=== PATIENT | male | born 1950 ===

== ENCOUNTER 2017-06-03 10:12 | Outpatient (CLI) | payer OTHER ==
[~2017-06-03] VITALS: Ht 152.4 cm; Wt 68.0 kg
== END 2017-06-03 10:30 | disposition home or self-care (01) ==
LOC: OFIC 805 10:12
DX: H90.3 Sensorineural hearing loss, bilateral (principal); J32.8 Other chronic sinusitis; R42 Dizziness and giddiness; R51 Headache; H93.13 Tinnitus, bilateral

== ENCOUNTER 2018-06-16 09:29 | Outpatient (CLI) | payer OTHER | END 2018-06-16 09:32 | disposition home or self-care (01) | LOC: RAD 09:29 | DX: M51.36 Other intervertebral disc degeneration, lumbar region (principal); Z98.1 Arthrodesis status ==